=== PATIENT | male | born 1990 | race Asian ===

== ENCOUNTER 2017-05-08 06:58 | Emergency (ER) | payer OTHER ==
[~2017-05-08] VITALS: Ht 177.8 cm; Wt 79.4 kg
[2017-05-08 07:00] VITALS: BP_SYST 140
[2017-05-08 07:29] VITALS: BP_SYST 131
== END 2017-05-08 07:29 ==
LOC: SED 06:58
DX: Z02.89 Encounter for other administrative examinations (principal); R03.0 Elevated blood-pressure reading, without diagnosis of hypertension; V89.2XXA Person injured in unspecified motor-vehicle accident, traffic, initial encounter; Y93.89 Activity, other specified; Y92.488 Other paved roadways as the place of occurrence of the external cause; Y99.8 Other external cause status
CPT/HCPCS: 71010; 99283